=== PATIENT | female | born 1995 | race Native Hawaiian/Other Pacific Islander ===

== ENCOUNTER 2016-10-03 16:12 | Emergency (ER) | payer OTHER ==
[~2016-10-03] VITALS: Ht 157.5 cm; Wt 122.5 kg
[2016-10-03 16:46] VITALS: BP 176/98; TEMP 98.3
== END 2016-10-03 18:45 | disposition home or self-care (01) ==
LOC: ED 16:12
DX: R10.84 Generalized abdominal pain (principal); G89.29 Other chronic pain
CPT/HCPCS: 81000; 81025; 99283

== ENCOUNTER 2016-10-05 08:52 | Outpatient (CLI) | payer OTHER | END 2016-10-05 19:26 | disposition home or self-care (01) | LOC: US 08:52 | DX: R10.11 Right upper quadrant pain (principal) ==

== ENCOUNTER 2016-10-28 15:25 | Emergency (ER) | payer OTHER ==
[~2016-10-28] VITALS: Ht 157.5 cm; Wt 130.2 kg
[2016-10-28 16:55] LABS: PLATELET COUNT 240 K/uL (152-353)
[2016-10-28 17:04] LABS: POTASSIUM 3.8 mmol/L (3.6-5.2); SODIUM 136 mmol/L (136-145)
[2016-10-28 18:51] VITALS: BP 148/89; TEMP 98
== END 2016-10-28 18:52 | disposition home or self-care (01) ==
LOC: ED 15:25
PROVIDERS: Specialist
DX: O26.899 Other specified pregnancy related conditions, unspecified trimester (principal); E86.9 Volume depletion, unspecified
CPT/HCPCS: 36415; 80053; 81000; 83735; 84100; 85027; 85379; 96360; 99284

== ENCOUNTER 2017-10-24 07:55 | Day surgery (SDC) | payer OTHER ==
[2017-10-24 09:04] LABS: PLATELET COUNT 304 K/uL (152-353)
== END 2017-10-24 14:41 | disposition home or self-care (01) ==
LOC: OR 07:55
PROVIDERS: Student in an Organized Health Care Education/Training Program
PROC: 0FT44ZZ Resection of Gallbladder, Percutaneous Endoscopic Approach (ICD-10-PCS; principal; 2017-10-24)
DX: K80.10 Calculus of gallbladder with chronic cholecystitis without obstruction (principal)
CPT/HCPCS: 80053; 81025; 85027; J0180; J0132; J0330; J0690; J1100; J1170; J1885; J2001; J2250; J2405; J2704; J2710; J2765; J3010; J3490

== ENCOUNTER 2017-12-26 15:34 | Emergency (ER) | payer OTHER ==
[~2017-12-26] VITALS: Ht 162.6 cm; Wt 122.5 kg
[2017-12-26 17:50] LABS: PLATELET COUNT 275 K/uL (152-353)
[2017-12-26 17:52] LABS: POTASSIUM 4.3 mmol/L (3.6-5.2); SODIUM 154 mmol/L (136-145)
[2017-12-26 18:24] VITALS: BP 150/92; TEMP 98
== END 2017-12-26 18:24 | disposition home or self-care (01) ==
LOC: ED 15:34
DX: R07.89 Other chest pain (principal)
CPT/HCPCS: 36415; 80053; 81000; 81025; 82550; 82553; 84484; 85027; 93005; 99283

== ENCOUNTER 2018-08-20 11:26 | Outpatient (CLI) | payer OTHER | END 2018-08-20 23:29 | disposition home or self-care (01) | LOC: RESP 11:26 | DX: R00.2 Palpitations (principal) | CPT/HCPCS: 93225 ==

== ENCOUNTER 2019-03-12 17:30 | Emergency (ER) | payer OTHER ==
[~2019-03-12] VITALS: Ht 157.5 cm; Wt 127.9 kg
[2019-03-12 18:37] VITALS: BP 143/82; TEMP 98
== END 2019-03-12 18:38 | disposition home or self-care (01) ==
LOC: ED 17:30
DX: J02.0 Streptococcal pharyngitis (principal)
CPT/HCPCS: 87651; 96372; 99283; J2930

== ENCOUNTER 2021-05-13 17:14 | Emergency (ER) | payer OTHER ==
[~2021-05-13] VITALS: Ht 157.5 cm; Wt 127.9 kg
[2021-05-13 17:23] VITALS: BP 142/90; TEMP 97.3
== END 2021-05-13 18:35 | disposition home or self-care (01) ==
LOC: ED 17:14
PROC: 2W3JX1Z Immobilization of Right Finger using Splint (ICD-10-PCS; principal; 2021-05-13)
DX: S60.021A Contusion of right index finger without damage to nail, initial encounter (principal); W23.0XXA Caught, crushed, jammed, or pinched between moving objects, initial encounter; Y92.89 Other specified places as the place of occurrence of the external cause
CPT/HCPCS: 99283